=== PATIENT | female | born 1995 | race Caucasian/White ===

== ENCOUNTER 2017-09-23 11:18 | Emergency (ER) | payer MEDICAID, SELFPAY ==
[2017-09-23 11:19] VITALS: BP 146/97; PULSE 118; RESP 20; TEMP 37.2; O2SAT 99; BMI 39.6
--- NOTE | 2017-09-23 11:47 | ED.DCSUM_ITS ---
- ER Visit Summary Date of Service: 09/23/17 Chief Complaint: Right leg pain History of Present Illness: The patient is a 21 F who states that for the past 2 months she has had a intermittent pain in her right Achilles region. She states that it is a cramping soreness that is worse when she sits or lays down but feels better with walking. She denies any history of trauma to the ankle and recent or past times. No swelling. Nothing changed today other than she was complaining about it and her significant other made her come to the emergency room. She has no local doctor. Physical Examination: Afebrile vital signs are stable triage tachycardia of 118 is resolved on my examination. Gen: Well-nourished well-developed patient is lying quite comfortably on the bed laughing and texting on her phone Head: Normocephalic atraumatic Eyes: Perrl EOMI ENT: TMs clear no rhinorrhea moist mucous membranes Neck: Supple no lymphadenopathy no JVD nontender CVS: Regular rate rhythm no murmurs normal S1-S2 Respiratory: No distress clear to auscultation bilaterally chest nontender Abdomen: Soft nontender nondistended normal bowel sounds no masses Back: Nontender Extremity: No edema. Patient is tender to palpation along her distal Achilles tendon. No rashes. No cords. Skin: Normal color no rash Neuro: alert orientated ?3 CN II-XII intact normal strength sensation reflexes gait cerebellar Psych: Normal affect normal mood Test Results: Ankle films were negative. Emergency Department Course and Treatment: The patient was advised that she should establish primary care. If her symptoms continue she may need an MRI. Otherwise we will do conservative treatment. Impression: 1. Right Achilles tendon pain This note was generated with [employer] dictation software. It may contain incorrect words, spelling, and punctuation that were not noted in review of the chart prior to signing ED Disposition - Plan for ED Patient: Disposition: Home or Assisted Living Chief Complaint: Lower Extremity Injury Instructions: What Is Tendinitis of the Foot? Referrals: NOT,DEFINED [NON-STAFF] - Jesus Ellis III, MD [STAFF PHYSICIAN] - 10-14 Days if not better
--- NOTE | 2017-09-23 11:53 | RAD_ITS ---
STUDY: X-RAY - RIGHT ANKLE REASON FOR EXAM: Female, 21 years old. NKI, pain off and on. TECHNIQUE: 3 view(s) of the ankle. COMPARISON: None. FINDINGS: Normal visualized distal tibia and fibula. Normal medial and lateral malleoli. Normal tibiotalar articulation and ankle mortise. Normal visualized talus and calcaneus. The visualized subtalar, talonavicular, calcaneocuboid and tarsal articulations are normal. The soft tissue structures are unremarkable. RAD/Ankle min 3 Views IMPRESSION: Normal x-ray examination of the ankle. Electronically Signed: Angélica Gibbs MD at 12:06 EDT Tel , Service support ,
== END 2017-09-23 12:23 | disposition home or self-care (01) ==
PROVIDERS: Emergency Provider Emergency Medicine
DX: M25.571 Pain in right ankle and joints of right foot (principal); E66.9 Obesity, unspecified
CPT/HCPCS: 73610; 99282